=== PATIENT | female | born 1995 | race Caucasian/White ===

== ENCOUNTER 2018-10-10 12:22 | Outpatient (CLI) | payer BC, OTHER ==
[2018-10-10 12:56] VITALS: BP 122/83; PULSE 97; RESP 18; TEMP 97.3
[2018-10-10 13:50] LABS: Appearance,Urine Cloudy (Clear); Bilirubin,Urine Negative (Negative); Blood,Urine Negative (Negative); Color,Urine Yellow; Glucose,Urine (UA) Negative (Negative); Ketones,Urine Negative (Negative); Leukocyte Esterase,Urine Moderate (Negative); Mucus,Urine Occasional /hpf; Nitrite,Urine Negative (Negative); Protein,Urine 1+ (Negative); RBC,Urine 1 /hpf (0-5); Specific Gravity,Urine 1.022 (1.001-1.035); Squamous Epithelial Cell,Urine 13 /hpf (0-4); Urobilinogen,Urine <2.0 mg/dL (<2.0); WBC,Urine 7 /hpf (0-5)
--- NOTE | 2018-10-14 17:07 | P.MSEPDOC ---
Presenting Problems - Arrival Data Date of Arrival on Unit: 10/10/18 Time of Arrival on Unit: 12:22 Mode of Transport: Ambulatory - Complaint OB-Reason for Admission/Chief Complaint: Headache, Visual Disturbances Medical History - Information : 1 Para: 0 Number of Living Children: 0 - Gestational Age Gestational Age by NIDA (wks/days): 37 Weeks and 5 Days Review of Systems - Review of Systems Constitutional: No problems Breast: No problems ENT: No problems Cardiovascular: No problems Respiratory: No problems Gastrointestinal: Diarrhea Genitourinary: No problems Musculoskeletal: No problems Neurological: No problems Skin: No problems Vital Signs - Temperature Temperature: 97.3 F Temperature Source: Temporal Artery Scan - Pulse Right Sitting Brachial Pulse Rate: 97 Pulse Assessment Method: Automatic Cuff - Respirations Respiratory Rate: 18 Oxygen Delivery Method: Room Air O2 Sat by Pulse Oximetry: 97 - Blood Pressure Right Arm Sitting Blood Pressure: 122/83 Blood Pressure Mean: 96 Blood Pressure Source: Automatic Cuff Medical Screen Scoring (Pre) - Cervical Exam Dilation: 1-3 cm = 1 Effacement: Exam Deferred Membranes: Intact - Uterine Contractions Frequency: N/A Duration: N/A Intensity: N/A - Maternal Vital Signs Maternal Temperature: N/A Maternal Blood Pressure: N/A Signs of Preeclampsia: Headache = 1, Nausea/Vomiting = 1, Visual Disturbance = 1 Maternal Respirations: N/A - Pain Assessment Pain Location and Character: Head Pain Scale Used: Numeric (1 - 10) Pain Intensity: 3 Pain Management Goal: 0 Pain Description: Aching Pain Radiation Location: 0 Pain Frequency: Constant Pain Duration: 2.5 Pain Duration Units: Hours Pain Behavior: None Exhibited Effects of Pain: 0 Pain Aggravating Factors: None Non-Pharmacological Interventions: Darkened Room - Maternal Trauma Maternal Trauma: N/A - Assessment Baseline FHR: 145 Heart Rate - NICHD Category: Category I (Normal) = 0 NST: Reactive Position: N/A Station: N/A - Total Score Total Score (Pre): 4 - Level of Risk Level of Risk: Low (0-5) Physician Notification (Pre) - Physician Notified Physician Notified Date: 10/10/18 Physician Notified Time: 12:34 Physician/Practitioner Notifed:: dr verduzco Spoke With: dr verduzco New Order Received: Yes Disposition - Disposition OB Disposition: Discharge to home Discharge Date: 10/10/18 Discharge Time: 14:01 I agree with the RN Medical Screening Exam: Yes Risk & Benefit of care provided described in d/c instruction: Yes Diagnosis: HEADACHE
== END 2018-10-10 14:01 | disposition home or self-care (01) ==
LOC: FBPOP 12:22
PROVIDERS: ATTEND Obstetrics & Gynecology
DX: O99.89 Other specified diseases and conditions complicating pregnancy, childbirth and the puerperium (principal); R51 Headache; Z3A.37 37 weeks gestation of pregnancy
CPT/HCPCS: 59025; 81001; 99213

== ENCOUNTER 2018-10-15 05:05 | Inpatient (IN) | payer BC, OTHER ==
[2018-10-15] MEDS ORDERED: OXYTOCIN 10 UNIT/ML 1 ML VIAL IM PRN (05:32)
[2018-10-15] MEDS ORDERED: TERBUTALINE 1 MG/ML VIAL SQ PRN (05:32)
[2018-10-15] MEDS ORDERED: METHYLERGONOVINE 0.2 MG/ML 1 ML AMP IM PRN (05:32)
[2018-10-15] MEDS ORDERED: CARBOPROST TROMETHAMINE 250 MCG/ML 1 ML AMP IM PRN (05:32)
[2018-10-15] MEDS ORDERED: LIDOCAINE 0.5% (PF) 5 MG/ML (50 ML SDV) SQ PRN (05:32)
[2018-10-15] MEDS ORDERED: AMPICILLIN 2,000 MG in SODIUM CHLORIDE 0.9% 100 ML IVPB STA (05:32)
[2018-10-15] MEDS ORDERED: OXYTOCIN 30 UNITS/500 ML NS 30 UNIT in SALINE 1 500ML.BAG IV SCH (05:45)
[2018-10-15] MEDS: LACTATED RINGERS 1,000 ML IV SCH ×4 (06:04→21:39)
[2018-10-15 06:11] LABS: Basophils % (A) 0 %; Eosinophils # (A) 0.1 k/uL (0-0.7); Eosinophils % (A) 1 %; HCT 41.2 % (34.0-46.0); HGB 14.1 gm/dL (11.4-16.0); Lymphocytes # (A) 1.8 k/uL (1.0-4.8); Lymphocytes % (A) 13 %; MCH 29.4 pg (25.0-35.0); MCHC 34.3 g/dL (31.0-37.0); MCV 85.8 fL (80.0-100.0); Mean Platelet Volume 7.9; Monocytes # (A) 0.7 k/uL (0-1.0); Monocytes % (A) 5 %; Neutrophils # (A) 11.5 k/uL (1.3-7.7); Neutrophils % (A) 80 %; Platelet Count 302 k/uL (150-450); RDW 14.1 % (11.5-15.5); WBC 14.4 k/uL (3.8-10.6)
[2018-10-15] MEDS ORDERED: BUTORPHANOL 1 MG/ML 1 ML VIAL IV PRN (06:14)
[2018-10-15 06:24] VITALS: BMI 41.1
--- NOTE | 2018-10-15 08:36 | P.HPOB ---
History of Present Illness H&P Date: 10/15/18 Chief Complaint: Spontaneous rupture of membranes This is a 23-year-old female 1 para 0 with an estimated date of confinement of 10/26/2018, estimated gestational age of 38-3/7 weeks, who presents to labor and delivery with complaints of spontaneous rupture membranes at approximately 3:30 AM with clear fluid noted. She is feeling mild contractions. course has been uncomplicated. labs: Hepatitis B surface antigen-negative RPR-nonreactive Rubella-immune Blood type-B+ Antibody screen-negative HIV-nonreactive Hemoglobin-11.9 Toxoplasma screen-negative Random glucose-69 Obstetrical ultrasounds-normal anatomy One hour Glucola-123 Group B streptococcus-positive on rectovaginal swabbed and also on urine culture. Obstetrical history: Gynecologic history: No history of sexually transmitted diseases. 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 Review of Systems Constitutional: Denies chills, Denies fever Eyes: denies blurred vision, denies pain Ears, nose, mouth and throat: Denies headache, Denies sore throat Cardiovascular: Denies chest pain, Denies shortness of breath Respiratory: Denies cough Gastrointestinal: Reports abdominal pain (Mild contractions) Genitourinary: Reports pelvic pain, Reports Musculoskeletal: Reports low back pain Integumentary: Denies pruritus, Denies rash Neurological: Denies numbness, Denies weakness Psychiatric: Denies anxiety, Denies depression Past Medical History Additional Past Medical History / Comment(s): Irritable bowel syndrome; history of genital warts History of Any Multi-Drug Resistant Organisms: None Reported Past Surgical History: Cholecystectomy Past Anesthesia/Blood Transfusion Reactions: No Reported Reaction Past Psychological History: ADD/ADHD Smoking Status: Never smoker Past Alcohol Use History: None Reported Past Drug Use History: None Reported - Past Family History Mother Family Medical History: No Reported History Medications and Allergies Home Medications Medication Instructions Recorded Confirmed Type Pnv,Calcium 72/Iron/Folic Acid 1 tab PO DAILY 10/15/18 10/15/18 History [ Plus Tablet] Allergies Allergy/AdvReac Type Severity Reaction Status Date / Time No Known Allergies Allergy Verified 10/10/18 12:50 Exam Osteopathic Statement: *. No significant issues noted on an osteopathic structural exam other than those noted in the History and Physical/Consult. Vital Signs Temp Pulse Resp BP 10/15/18 06:16 97.0 F L 102 H 16 130/87 10/15/18 06:00 97 F L 102 H 16 130/87 Intake and Output 10/14/18 10/15/18 10/15/18 22:59 06:59 14:59 Other: # Voids 1 Weight 115.439 kg HEENT: Within normal limits Heart: Regular rate and rhythm Lungs: Clear to auscultation bilaterally Abdomen: Cervix: Initially 1-1/2 cm/50%/-2 station. Positive amnisure with clear fluid noted. heart tones: Reactive Contractions: Every 2-4 minutes, mild Extremities: Negative Homans Results Result Diagrams: 10/15/18 05:50 Abnormal Lab Results - Last 24 Hours (Table) 10/15/18 Range/Units 05:50 WBC 14.4 H (3.8-10.6) k/uL Neutrophils # 11.5 H (1.3-7.7) k/uL Assessment and Plan (1) 38 weeks gestation of Current Visit: Yes Status: Acute Code(s): Z3A.38 - 38 WEEKS GESTATION OF SNOMED Code(s): 15202802 (2) Group B Streptococcus carrier, +RV culture, currently Current Visit: Yes Status: Acute Code(s): O99.820 - STREPTOCOCCUS B CARRIER STATE COMPLICATING SNOMED Code(s): 2489286140232 Plan: Admission for early labor. Antibiotic prophylaxis for group B streptococcus. Epidural anesthesia if desired. Oxytocin augmentation of labor.
--- NOTE | 2018-10-15 08:37 | P.MSEPDOC ---
Presenting Problems - Arrival Data Date of Arrival on Unit: 10/15/18 Time of Arrival on Unit: 05:40 Mode of Transport: Ambulatory Medical History - Information : 1 Para: 0 Term: 0 : 0 Abortions: Spontaneous or Elective: 0 Number of Living Children: 0 - Gestational Age Gestational Age by NIDA (wks/days): 38 Weeks and 3 Days Vital Signs - Temperature Temperature: 97.0 F - Pulse Right Brachial Pulse Rate: 102 - Respirations Respiratory Rate: 16 - Blood Pressure Right Arm Blood Pressure: 130/87 Blood Pressure Mean: 101 Medical Screen Scoring (Post) - Cervical Exam Dilation: 1-3 cm = 1 Membranes: Ruptured = 3 - Uterine Contractions Frequency: > or = 36 weeks =2 Duration: > 40 seconds = 2 - Maternal Vital Signs Maternal Temperature: N/A Maternal Blood Pressure: N/A Signs of Preeclampsia: N/A Maternal Respirations: N/A - Pain Assessment Pain Location and Character: Lower, Abdomen Pain Scale Used: Numeric (1 - 10) Pain Intensity: 2 Pain Management Goal: 5 Pain Description: *Acute Pain Radiation Location: Back Pain Frequency: Intermittent Pain Duration: 2 Pain Duration Units: Hours Pain Behavior: None Exhibited Pain Aggravating Factors: Contractions Pharmacological Interventions: Discuss Pain Med Options Non-Pharmacological Interventions: Darkened Room - Maternal Trauma Maternal Trauma: N/A - Assessment Heart Rate: 130 Heart Rate - NICHD Category: Category I (Normal) = 0 NST: Reactive - Total Score Total Score (Post): 8 - Post Treatment Level of Risk Post Treatment Level of Risk: Medium (6-9) Physician Notification (Post) - Physician Notified Physician Notified Date: 10/15/18 Physician Notified Time: 05:50 Physician/Practitioner Notified:: Dr. Trinidad Spoke With: Dr. Trinidad New Order Received: Yes - Notification Comment Comment: RN reported maternal and status including that patients water had broke. Patient to be admitted for labor and started on antibiotics. Disposition - Disposition OB Disposition: Admit Transferred to:: Suite 1 I agree with the RN Medical Screening Exam: Yes Risk & Benefit of care provided described in d/c instruction: Yes Diagnosis: ENCOUNTER FOR FULL-TERM UNCOMPLICATED DELIVERY
[2018-10-15] MEDS ORDERED: fentaNYL (PF) 50 MCG/ML 5 ML AMP ONE (09:35)
[2018-10-15] MEDS ORDERED: SODIUM CHLORIDE 0.9% 100 ML BAG ONE (09:35)
[2018-10-15] MEDS ORDERED: ROPIVACAINE 5MG/ML 20ML VIAL ONE (09:35)
[2018-10-15] MEDS: AMPICILLIN 1,000 MG in SODIUM CHLORIDE 0.9% 50 ML IVPB SCH ×3 (10:07→21:42)
[2018-10-15] MEDS ORDERED: CITRIC ACID-SODIUM CITRATE 15 ML CUP PO ONE (18:06)
[2018-10-15] MEDS ORDERED: ceFAZolin IN SWFI 2 GM/20 ML SYRINGE IVP ONE (18:06)
[2018-10-15] MEDS ORDERED: KETOROLAC 30 MG/ML 1 ML VIAL ONE (18:37)
[2018-10-15] MEDS ORDERED: ONDANSETRON 4 MG/2 ML VIAL ONE (18:37)
[2018-10-15] MEDS ORDERED: NALBUPHINE 10 MG/ML (1 ML AMP) ONE (18:37)
[2018-10-15] MEDS ORDERED: MORPHINE SULFATE (PF) 0.3 MG/0.3 ML SYR ONE (18:37)
[2018-10-15] MEDS ORDERED: LIDOCAINE 2% (PF) 20 MG/ML 10 ML AMP ONE (18:37)
--- NOTE | 2018-10-15 19:17 | P.OP ---
Date of Procedure: 10/15/18 Preoperative Diagnosis: Intrauterine : Failure to progress Postoperative Diagnosis: Same with cephalopelvic disproportion Procedure(s) Performed: Primary low transverse section Anesthesia: FERNANDO Surgeon: Gregorio Javier Inspector [employer] Detail #1: Rafael Keenan Estimated Blood Loss (ml): 500 IV fluids (ml): 700 Urine output (ml): 400 Pathology: none sent Condition: stable Disposition: floor Operative Findings: Male scores of 9 and 9 at one and 5 minutes just Ashlee and weight of 8 lbs. 4 oz. Description of Procedure: Patient was taken to the operating suite where a epidural anesthetic was found be adequate. She was prepped and draped in normal sterile fashion and placed in the dorsal supine position with leftward tilt. Initially a Pfannenstiel skin incision was made this incision was then carried through to underlying layer of the fascia was second knife. Fascia was then nicked in the midline and this opening was extended laterally with Espinoza scissors. Superior and inferior aspect of this incision were then grasped tented up and bluntly and sharply dissected off the rectus muscles. Rectus muscles were then divided the midline and sharp dissection through the peritoneum was made. This opening was then extended superiorly and inferiorly with good visualization of both bowel and bladder. Bladder blade was then placed and the vesicouterine peritoneum identified and entered with Metzenbaum scissors. This opening was then extended across the face of the uterus with Metzenbaum scissors and the bladder flap was digitally created. Knife was then used to incise uterus and this opening was extended bluntly after fully being developed with a hemostat. Head was then atraumatically delivered and mouth nares were bulb suctioned. A nuchal cord 1 was easily reduced. Anterior and posterior shoulders were then delivered with gentle downward upper traction followed by the remainder of the baby. Umbilical cord was then clamped cut usual fashion an nursery personnel was present to assume care. Placenta was then delivered intact and Pitocin was added to the IV. Uterus was then closed in 2 layers with 0 Vicryl suture. Once excellent h emostasis was obtained blood and debris was suctioned from the posterior cul-de-sac and the uterus was reinserted into the abdomen. Peritoneal layer was then closed with 3-0 Vicryl suture. Fascial layer was closed with 0 Vicryl suture. One layer of 3-0 Vicryl was placed in the deep subcuticular tissues to reapproximate the skin. Skin was then closed with 3-0 Vicryl subcuticularly. Sponge, lap, needle counts were all correct 2. Patient was then taken to the recovery room in stable and satisfactory condition.
[2018-10-15] MEDS ORDERED: BENZOCAINE/MENTHOL SPRAY 1 GM/SPRAY AEROSOL TOPICAL PRN (19:44)
[2018-10-15] MEDS ORDERED: diphenhydrAMINE 50 MG CAP PO PRN ×2 (19:44)
[2018-10-15] MEDS ORDERED: NALOXONE 0.4 MG/ML 1 ML VIAL IV PRN (19:44)
[2018-10-15] MEDS ORDERED: diphenhydrAMINE 50 MG/ML 1 ML VIAL IVP PRN ×4 (19:44)
[2018-10-15] MEDS ORDERED: ONDANSETRON 4 MG/2 ML VIAL IVP PRN (19:44)
[2018-10-15] MEDS ORDERED: METOCLOPRAMIDE 5 MG/ML 2 ML VIAL IVP PRN (19:44)
[2018-10-15] MEDS ORDERED: IBUPROFEN 600 MG TAB PO PRN (19:44)
[2018-10-15] MEDS ORDERED: HYDROCORTISONE 2.5% RECTAL CREAM 30 GM TUBE RECTAL PRN (19:44)
[2018-10-15] MEDS ORDERED: ACETAMINOPHEN TAB 325 MG TAB PO PRN (19:44)
[2018-10-15] MEDS ORDERED: WITCH HAZEL 1 EACH MED..PAD TOPICAL PRN (19:44)
[2018-10-15] MEDS ORDERED: diphenhydrAMINE 25 MG CAP PO PRN ×2 (19:44)
[2018-10-15] MEDS ORDERED: OXYTOCIN 20 UNITS/1000 ML NS 1,000 ML IV SCH (19:44)
[2018-10-15] MEDS ORDERED: ZOLPIDEM 5 MG TAB PO PRN ×2 (19:44)
[2018-10-15] MEDS ORDERED: SIMETHICONE 80 MG CHEWABLE PO PRN (19:44)
[2018-10-15] MEDS ORDERED: LANOLIN CREAM 5 GM TUBE TOPICAL PRN (19:44)
[2018-10-15] MEDS ORDERED: SENNOSIDES-DOCUSATE SODIUM 1 EACH TAB PO SCH (20:00)
[2018-10-15] MEDS: SENNOSIDES-DOCUSATE SODIUM 1 EACH TAB PO SCH (21:39)
[2018-10-16] MEDS: KETOROLAC 30 MG/ML 1 ML VIAL IVP PRN ×2 (03:27→09:13)
[2018-10-16] MEDS: LACTATED RINGERS 1,000 ML IV SCH (03:46)
[2018-10-16 06:48] LABS: Basophils % (A) 0 %; Eosinophils # (A) 0.1 k/uL (0-0.7); Eosinophils % (A) 1 %; HCT 29.9 % (34.0-46.0); Lymphocytes # (A) 1.8 k/uL (1.0-4.8); Lymphocytes % (A) 14 %; MCH 29.5 pg (25.0-35.0); MCHC 34.8 g/dL (31.0-37.0); MCV 84.7 fL (80.0-100.0); Mean Platelet Volume 7.9; Monocytes # (A) 0.5 k/uL (0-1.0); Monocytes % (A) 4 %; Neutrophils # (A) 10.5 k/uL (1.3-7.7); Neutrophils % (A) 80 %; Platelet Count 198 k/uL (150-450); RBC 3.52 m/uL (3.80-5.40); RDW 13.9 % (11.5-15.5); WBC 13.1 k/uL (3.8-10.6)
[2018-10-16 07:00] LABS: HGB 10.4 gm/dL (11.4-16.0)
--- NOTE | 2018-10-16 09:36 | P.PNOBGPC ---
Subjective - Subjective Principal diagnosis: Postop day 1 Interval history: Doing very well this morning. She is ambulating and voiding. We'll advance diet this morning. Patient reports: Reports appetite normal, Reports voiding normally, Reports pain well controlled, Reports ambulating normally : doing well Objective - Vital Signs Latest vital signs: Vital Signs Temp Pulse Resp BP Pulse Ox 10/16/18 07:39 97.7 F 97 16 106/66 10/16/18 03:44 98.3 F 87 16 115/60 99 10/15/18 23:58 97.7 F 90 16 129/58 98 10/15/18 21:19 97.3 F L 98 16 126/73 98 10/15/18 20:49 97.9 F 110 H 16 119/71 96 10/15/18 20:19 97.0 F L 119 H 16 117/55 98 10/15/18 20:04 96.9 F L 110 H 16 136/60 96 10/15/18 19:49 104 H 16 134/64 10/15/18 19:34 121 H 16 135/83 10/15/18 19:19 97.6 F 146 H 18 135/83 97 Intake and Output 10/15/18 10/16/18 10/16/18 22:59 06:59 14:59 Output Total 300 300 100 Balance -300 -300 -100 Output: Urine 300 300 100 Uretheral (Rowe) 300 Other: Voiding Method Indwelling Catheter Indwelling Catheter - Exam Lungs: bilateral: normal Chest: Normal S1, Normal S2 Extremities: Present: normal Abdomen: Present: normal appearance, soft. Absent: distention, tenderness Incision: Present: normal, dry, intact Uterus: Present: normal, firm - Labs Labs: Abnormal Lab Results - Last 24 Hours (Table) 10/16/18 Range/Units 06:18 WBC 13.1 H (3.8-10.6) k/uL RBC 3.52 L (3.80-5.40) m/uL Hgb 10.4 L D (11.4-16.0) gm/dL Hct 29.9 L (34.0-46.0) % Neutrophils # 10.5 H (1.3-7.7) k/uL
[2018-10-16] MEDS: HYDROcodone/APAP 7.5-325MG 1 EACH TAB PO PRN (13:33)
[2018-10-16] MEDS: SENNOSIDES-DOCUSATE SODIUM 1 EACH TAB PO SCH ×2 (15:32→21:05)
[2018-10-16] MEDS: IBUPROFEN 600 MG TAB PO PRN ×2 (17:59→23:58)
[2018-10-16] MEDS: ACETAMINOPHEN TAB 325 MG TAB PO PRN (21:05)
[2018-10-17] MEDS: ACETAMINOPHEN TAB 325 MG TAB PO PRN ×2 (04:08→07:57)
[2018-10-17] MEDS: IBUPROFEN 600 MG TAB PO PRN (06:46)
[2018-10-17] MEDS: SENNOSIDES-DOCUSATE SODIUM 1 EACH TAB PO SCH (07:57)
[2018-10-17 08:02] VITALS: RESP 15; TEMP 97.9
--- NOTE | 2018-10-17 09:51 | P.DS ---
Providers Date of admission: 10/15/18 05:40 Expected date of discharge: 10/17/18 Attending physician: Aide Trinidad Primary care physician: Aide Trinidad [facility] Course: Patient is doing very well postop day 2. She is ambulating, voiding, and she is tolerating her diet. She voices no complaints. Vital signs are stable and she is afebrile. Heart regular, lungs clear, extremities are without pain. Abdomen soft incisions clean dry and intact and her uterus is firm below the umbilicus. Discharge instructions were thoroughly reviewed. Prescriptions for Motrin and [place] her 40 to the pharmacy. Pressure for breast pump is provided. All other questions are answered for her prior to discharge. She is stable for discharge at this time. Patient Condition at Discharge: Good Plan - Discharge Summary New Discharge Prescriptions: New Ibuprofen [Motrin] 600 mg PO Q6HR PRN #30 tab PRN Reason: Pain HYDROcodone/APAP 5-325MG [[place] 5-325] 1 tab PO Q4HR PRN #30 tab PRN Reason: Pain No Action Pnv,Calcium 72/Iron/Folic Acid [ Plus Tablet] 1 tab PO DAILY Discharge Medication List Pnv,Calcium 72/Iron/Folic Acid [ Plus Tablet] 1 tab PO DAILY 10/15/18 [History] HYDROcodone/APAP 5-325MG [[place] 5-325] 1 tab PO Q4HR PRN #30 tab 10/17/18 [Rx] Ibuprofen [Motrin] 600 mg PO Q6HR PRN #30 tab 10/17/18 [Rx] Follow up Appointment(s)/Referral(s): Aide Trinidad DO [Primary Care Provider] - 1 Week Activity/Diet/Wound Care/Special Instructions: No heavy lifting, limit stairs and driving, and pelvic rest. If any high temperatures, heavy bleeding, or severe pain call our office. Discharge Disposition: HOME SELF-CARE
[2018-10-17] MEDS: HYDROcodone/APAP 7.5-325MG 1 EACH TAB PO PRN (15:07)
[2018-10-17 16:28] VITALS: BP 137/60; PULSE 99
== END 2018-10-17 18:31 | disposition home or self-care (01) | DRG 788 ==
LOC: FBPOP 05:05 → 4FBP 05:40
PROVIDERS: ADMIT Obstetrics & Gynecology; ATTEND Obstetrics & Gynecology
PROC: 10D00Z1 Extraction of Products of Conception, Low, Open Approach (ICD-10-PCS; principal; 2018-10-15 18:50)
DX: O33.9 Maternal care for disproportion, unspecified (principal); O99.824 Streptococcus B carrier state complicating childbirth; O69.81X0 Labor and delivery complicated by cord around neck, without compression, not applicable or unspecified; Z3A.38 38 weeks gestation of pregnancy; Z37.0 Single live birth
CPT/HCPCS: 59025; 84112; 85025; 86850; 86900; 86901; 99213

== ENCOUNTER 2020-04-19 12:25 | Emergency (ER) | payer BC, OTHER ==
[2020-04-19 12:37] VITALS: TEMP 98.8
[2020-04-19] MEDS ORDERED: SODIUM CHLORIDE 0.9% 1,000 ML IV STA (12:55)
[2020-04-19] MEDS ORDERED: diphenhydrAMINE 50 MG/ML 1 ML VIAL IVP STA (12:56)
[2020-04-19] MEDS ORDERED: METOCLOPRAMIDE 5 MG/ML 2 ML VIAL IVP STA (12:56)
--- NOTE | 2020-04-19 13:13 | ED ---
Dizziness HPI - General Chief Complaint: Dizziness Stated Complaint: 23 wks preg, headache, dizziness Time Seen by Provider: 04/19/20 12:35 Source: patient Mode of arrival: ambulatory - History of Present Illness Initial Comments: Patient is a 25-year-old female who is who presents to the emergency department with reported headache since Thursday. She states that she has tried Tylenol, Benadryl at home for her headache which was directed by her [employer]. She's had no improvement. Edema and recommended that she come to the emergency room for evaluation of possible preeclampsia. Denies previous history of this. No history of hypertension at baseline. Does admit to blurred vision. No neck pain or stiffness. Denies fevers or chills. No right upper quadrant pain. Denies any changes in her urination. No other alleviating, precipitating or modifying factors - Related Data Previous Rx's Medication Instructions Recorded Cephalexin [Keflex] 500 mg PO Q12HR #14 cap 04/19/20 Allergies Allergy/AdvReac Type Severity Reaction Status Date / Time No Known Allergies Allergy Verified 04/19/20 13:39 Review of Systems ROS Statement: Those systems with pertinent positive or pertinent negative responses have been documented in the HPI. ROS Other: All systems not noted in ROS Statement are negative. Past Medical History Additional Past Medical History / Comment(s): Irritable bowel syndrome; history of genital warts History of Any Multi-Drug Resistant Organisms: None Reported Past Surgical History: Section, Cholecystectomy Past Anesthesia/Blood Transfusion Reactions: No Reported Reaction Past Psychological History: ADD/ADHD Smoking Status: Never smoker Past Alcohol Use History: None Reported Past Drug Use History: None Reported - Past Family History Mother Family Medical History: No Reported History General Exam General appearance: alert, in no apparent distress Head exam: Present: atraumatic, normocephalic, normal inspection Eye exam: Present: normal appearance, PERRL, EOMI. Absent: scleral icterus, conjunctival injection, periorbital swelling ENT exam: Present: normal exam, mucous membranes moist Neck exam: Present: normal inspection. Absent: tenderness, meningismus, lymphadenopathy Respiratory exam: Present: normal lung sounds bilaterally. Absent: respiratory distress, wheezes, rales, rhonchi, stridor Cardiovascular Exam: Present: regular rate, normal rhythm, normal heart sounds. Absent: systolic murmur, diastolic murmur, rubs, gallop, clicks GI/Abdominal exam: Present: soft, normal bowel sounds. Absent: distended, tenderness, guarding, rebound, rigid Extremities exam: Present: normal inspection, full ROM, normal capillary refill. Absent: tenderness, pedal edema, joint swelling, calf tenderness Back exam: Present: normal inspection Neurological exam: Present: alert, oriented X3, CN II-XII intact Psychiatric exam: Present: normal affect, normal mood Skin exam: Present: warm, dry, intact, normal color. Absent: rash Course Vital Signs 04/19/20 04/19/20 04/19/20 12:33 13:00 13:30 Temperature 98.8 F Pulse Rate 95 92 85 Respiratory 16 18 22 Rate Blood Pressure 110/73 133/79 122/77 O2 Sat by Pulse 98 95 97 Oximetry 04/19/20 04/19/20 14:00 14:30 Temperature Pulse Rate 93 89 Respiratory 19 22 Rate Blood Pressure 117/69 119/71 O2 Sat by Pulse 97 97 Oximetry Medical Decision Making - Medical Decision Making Upon arrival patient was placed into room 19. A thorough history and physical exam was performed. Blood pressures are obtained every 15 minutes and are noted to be less than 1:30 systolic. Lab studies were conducted. White count is 16.1. Urinalysis is positive for nitrites and occasional bacteria. Patient was given a dose of Rocephin. Bedside ultrasound was performed. There is positive motion, heart rate of approximately 155. Results are discussed with the patient. She does have follow-up appointment with Dr. Trinidad tomorrow. I will place her on Keflex. She was given a dose of Reglan and Benadryl for her headache for which she states she did have improvement. She has any new or worsening symptoms she should return to the emergency room. Patient was discharged home in stable condition - Lab Data Result diagrams: 04/19/20 13:15 04/19/20 13:15 Lab Results 04/19/20 04/19/20 04/19/20 Range/Units 13:15 13:15 13:15 WBC 16.1 H (3.8-10.6) k/uL RBC 4.32 (3.80-5.40) m/uL Hgb 13.2 (11.4-16.0) gm/dL Hct 38.0 (34.0-46.0) % MCV 88.0 (80.0-100.0) fL MCH 30.6 (25.0-35.0) pg MCHC 34.8 (31.0-37.0) g/dL RDW 12.4 (11.5-15.5) % Plt Count 247 (150-450) k/uL Neutrophils % 83 % Lymphocytes % 11 % Monocytes % 4 % Eosinophils % 1 % Basophils % 0 % Neutrophils # 13.4 H (1.3-7.7) k/uL Lymphocytes # 1.8 (1.0-4.8) k/uL Monocytes # 0.6 (0-1.0) k/uL Eosinophils # 0.2 (0-0.7) k/uL Basophils # 0.0 (0-0.2) k/uL PT 9.6 (9.0-12.0) sec INR 0.9 (<1.2) Sodium (137-145) mmol/L Potassium (3.5-5.1) mmol/L Chloride (98-107) mmol/L Carbon Dioxide (22-30) mmol/L Anion Gap mmol/L BUN (7-17) mg/dL Creatinine (0.52-1.04) mg/dL Est GFR (CKD-EPI)AfAm (>60 ml/min/1.73 sqM) Est GFR (CKD-EPI)NonAf (>60 ml/min/1.73 sqM) Glucose (74-99) mg/dL Uric Acid (3.7-7.4) mg/dL Calcium (8.4-10.2) mg/dL Total Bilirubin (0.2-1.3) mg/dL AST (14-36) U/L ALT (4-34) U/L Alkaline Phosphatase (38-126) U/L Lactate Dehydrogenase (313-618) U/L Total Protein (6.3-8.2) g/dL Albumin (3.5-5.0) g/dL Urine Color Yellow Urine Appearance Cloudy H (Clear) Urine pH 6.0 (5.0-8.0) Ur Specific [place] 1.024 (1.001-1.035) Urine Protein 1+ H (Negative) Urine Glucose (UA) Negative (Negative) Urine Ketones Trace H (Negative) Urine Blood Trace H (Negative) Urine Nitrite Positive H (Negative) Urine Bilirubin Negative (Negative) Urine Urobilinogen <2.0 (<2.0) mg/dL Ur Leukocyte Esterase Moderate H (Negative) Urine RBC 4 (0-5) /hpf Urine WBC 21 H (0-5) /hpf Ur Squamous Epith Cells 8 H (0-4) /hpf Urine Bacteria Occasional H (None) /hpf Urine Mucus Moderate H (None) /hpf 04/19/20 Range/Units 13:15 WBC (3.8-10.6) k/uL RBC (3.80-5.40) m/uL Hgb (11.4-16.0) gm/dL Hct (34.0-46.0) % MCV (80.0-100.0) fL MCH (25.0-35.0) pg MCHC (31.0-37.0) g/dL RDW (11.5-15.5) % Plt Count (150-450) k/uL Neutrophils % % Lymphocytes % % Monocytes % % Eosinophils % % Basophils % % Neutrophils # (1.3-7.7) k/uL Lymphocytes # (1.0-4.8) k/uL Monocytes # (0-1.0) k/uL Eosinophils # (0-0.7) k/uL Basophils # (0-0.2) k/uL PT (9.0-12.0) sec INR (<1.2) Sodium 136 L (137-145) mmol/L Potassium 4.0 (3.5-5.1) mmol/L Chloride 108 H (98-107) mmol/L Carbon Dioxide 18 L (22-30) mmol/L Anion Gap 10 mmol/L BUN 5 L (7-17) mg/dL Creatinine 0.45 L (0.52-1.04) mg/dL Est GFR (CKD-EPI)AfAm >90 (>60 ml/min/1.73 sqM) Est GFR (CKD-EPI)NonAf >90 (>60 ml/min/1.73 sqM) Glucose 78 (74-99) mg/dL Uric Acid 3.9 (3.7-7.4) mg/dL Calcium 9.3 (8.4-10.2) mg/dL Total Bilirubin 0.3 (0.2-1.3) mg/dL AST 19 (14-36) U/L ALT 17 (4-34) U/L Alkaline Phosphatase 61 (38-126) U/L Lactate Dehydrogenase 358 (313-618) U/L Total Protein 6.8 (6.3-8.2) g/dL Albumin 4.0 (3.5-5.0) g/dL Urine Color Urine Appearance (Clear) Urine pH (5.0-8.0) Ur Specific [place] (1.001-1.035) Urine Protein (Negative) Urine Glucose (UA) (Negative) Urine Ketones (Negative) Urine Blood (Negative) Urine Nitrite (Negative) Urine Bilirubin (Negative) Urine Urobilinogen (<2.0) mg/dL Ur Leukocyte Esterase (Negative) Urine RBC (0-5) /hpf Urine WBC (0-5) /hpf Ur Squamous Epith Cells (0-4) /hpf Urine Bacteria (None) /hpf Urine Mucus (None) /hpf Disposition Clinical Impression: Headache, UTI (urinary tract infection), Second trimester Disposition: HOME SELF-CARE Condition: Stable Instructions (If sedation given, give patient instructions): Urinary Tract Infection in (ED) Additional Instructions: please follow-up with Dr. Trinidad tomorrow. Return to the emergency room for any new or worsening symptoms Prescriptions: Cephalexin [Keflex] 500 mg PO Q12HR #14 cap Is patient prescribed a controlled substance at d/c from ED?: No Referrals: Nonstaff,Physician [REFERRING] - 1-2 days Aide Trinidad DO [Doctor of Osteopathic Medicine] - 1-2 days Time of Disposition: 14:35
[2020-04-19 13:23] LABS: Basophils % (A) 0 %; Eosinophils # (A) 0.2 k/uL (0-0.7); Eosinophils % (A) 1 %; HGB 13.2 gm/dL (11.4-16.0); Lymphocytes # (A) 1.8 k/uL (1.0-4.8); Lymphocytes % (A) 11 %; MCH 30.6 pg (25.0-35.0); MCHC 34.8 g/dL (31.0-37.0); Mean Platelet Volume 7.1; Monocytes # (A) 0.6 k/uL (0-1.0); Monocytes % (A) 4 %; Neutrophils # (A) 13.4 k/uL (1.3-7.7); Neutrophils % (A) 83 %; Platelet Count 247 k/uL (150-450); RBC 4.32 m/uL (3.80-5.40); RDW 12.4 % (11.5-15.5); WBC 16.1 k/uL (3.8-10.6)
[2020-04-19 13:26] LABS: Appearance,Urine Cloudy (Clear); Bacteria,Urine Occasional /hpf; Bilirubin,Urine Negative (Negative); Blood,Urine Trace (Negative); Color,Urine Yellow; Glucose,Urine (UA) Negative (Negative); Ketones,Urine Trace (Negative); Leukocyte Esterase,Urine Moderate (Negative); Mucus,Urine Moderate /hpf; Nitrite,Urine Positive (Negative); Protein,Urine 1+ (Negative); RBC,Urine 4 /hpf (0-5); Specific Gravity,Urine 1.024 (1.001-1.035); Squamous Epithelial Cell,Urine 8 /hpf (0-4); Urobilinogen,Urine <2.0 mg/dL (<2.0); WBC,Urine 21 /hpf (0-5)
[2020-04-19 13:32] LABS: ALT 17 U/L (4-34); AST 19 U/L (14-36); African American GFR (CKD) >90 (>60 ml/min/1.73 sqM); Alkaline Phosphatase 61 U/L (38-126); Anion Gap 10 mmol/L; Blood Urea Nitrogen 5 mg/dL (7-17); Calcium 9.3 mg/dL (8.4-10.2); Carbon Dioxide 18 mmol/L (22-30); Chloride 108 mmol/L (98-107); Glucose 78 mg/dL (74-99); LDH 358 U/L (313-618); Non-African American GFR(CKD) >90 (>60 ml/min/1.73 sqM); Sodium 136 mmol/L (137-145); Total Bilirubin 0.3 mg/dL (0.2-1.3); Total Protein 6.8 g/dL (6.3-8.2); Uric Acid 3.9 mg/dL (3.7-7.4)
[2020-04-19 13:34] VITALS: RESP 22
[2020-04-19 13:35] LABS: INR 0.9 (<1.2); Prothrombin Time 9.6 sec (9.0-12.0)
[2020-04-19] MEDS ORDERED: cefTRIAXone IN SWFI 1,000 MG/10 ML SYRINGE IVP STA (14:02)
[2020-04-19 14:40] VITALS: BP 119/71; PULSE 89
== END 2020-04-19 14:53 | disposition home or self-care (01) ==
LOC: EC 12:25
DX: O99.891 Other specified diseases and conditions complicating pregnancy (principal); R51.9 Headache, unspecified; O23.92 Unspecified genitourinary tract infection in pregnancy, second trimester; Z3A.23 23 weeks gestation of pregnancy
CPT/HCPCS: 36415; 80053; 83615; 84550; 85025; 85610; 81001; 87086; 99284; 96374; 96375 ×2; 96361 ×2; J1200; J2765; J0696

== ENCOUNTER 2020-06-04 12:18 | Outpatient (CLI) | payer BC, OTHER ==
[2020-06-04 13:05] LABS: Glucose,Whole Blood 74 mg/dL (75-99)
[2020-06-04 13:36] VITALS: BP 122/74; PULSE 89; RESP 16; TEMP 98.1
[2020-06-04 13:41] LABS: Appearance,Urine Cloudy (Clear); Bacteria,Urine Moderate /hpf; Bilirubin,Urine Negative (Negative); Blood,Urine Negative (Negative); Color,Urine Yellow; Glucose,Urine (UA) Negative (Negative); Ketones,Urine 2+ (Negative); Leukocyte Esterase,Urine Negative (Negative); Mucus,Urine Moderate /hpf; Nitrite,Urine Negative (Negative); PH, Urine 6.5 (5.0-8.0); Protein,Urine Trace (Negative); RBC,Urine 4 /hpf (0-5); Specific Gravity,Urine 1.021 (1.001-1.035); Squamous Epithelial Cell,Urine 8 /hpf (0-4); Urobilinogen,Urine <2.0 mg/dL (<2.0); WBC,Urine 3 /hpf (0-5)
--- NOTE | 2020-06-17 05:16 | P.MSEPDOC ---
Presenting Problems - Arrival Data Date of Arrival on Unit: 06/04/20 Time of Arrival on Unit: 12:55 Mode of Transport: Ambulatory - Complaint OB-Reason for Admission/Chief Complaint: Acute Nausea/Vomiting, Headache, Dizziness Medical History - Information : 2 Para: 1 Term: 1 : 0 Abortions: Spontaneous or Elective: 0 Number of Living Children: 1 - Gestational Age Gestational Age by NIDA (wks/days): 30 Weeks and 0 Days - History Complications: GDM Review of Systems - Review of Systems Constitutional: No problems Breast: No problems ENT: No problems Cardiovascular: No problems Respiratory: No problems Gastrointestinal: No problems Genitourinary: No problems Musculoskeletal: No problems Neurological: Dizziness Skin: No problems Vital Signs - Temperature Temperature: 98.1 F Temperature Source: Temporal Artery Scan - Pulse Right Pulse Rate: 89 Pulse Assessment Method: Pulse Oximetry - Respirations Respiratory Rate: 16 Oxygen Delivery Method: Room Air O2 Sat by Pulse Oximetry: 98 - Blood Pressure Right Arm Blood Pressure: 122/74 Blood Pressure Mean: 90 Blood Pressure Source: Automatic Cuff Medical Screen Scoring (Pre) - Cervical Exam Dilation: Exam Deferred Effacement: Exam Deferred Membranes: Intact - Uterine Contractions Frequency: N/A Duration: N/A Intensity: N/A - Maternal Vital Signs Maternal Temperature: N/A Maternal Blood Pressure: N/A Signs of Preeclampsia: Headache = 1, Nausea/Vomiting = 1, Visual Disturbance = 1 Maternal Respirations: N/A - Maternal Trauma Maternal Trauma: N/A - Assessment - Baby A Baseline FHR: 145 Heart Rate - NICHD Category: Category I (Normal) = 0 NST: Reactive Position: N/A Station: N/A - Total Score - Baby A Total Score - Baby A: 3 - Total Score - Baby B Total Score - Baby B: 3 - Total Score - Baby C Total Score - Baby C: 3 - Level of Risk - Baby A Level of Risk - Baby A: Low (0-5) - Level of Risk - Baby B Level of Risk - Baby B: Low (0-5) - Level of Risk - Baby C Level of Risk - Baby C: Low (0-5) Physician Notification (Pre) - Physician Notified Physician Notified Date: 06/04/20 Physician Notified Time: 12:55 New Order Received: Yes - Notification Comment Comment: Obtain blood sugar once now and UA. Medical Screen Scoring (Post) - Cervical Exam Dilation: Exam Deferred Effacement: Exam Deferred Membranes: Intact - Uterine Contractions Frequency: N/A Duration: N/A Intensity: N/A - Maternal Vital Signs Maternal Temperature: N/A Maternal Blood Pressure: N/A Signs of Preeclampsia: Headache = 1 Maternal Respirations: N/A - Maternal Trauma Maternal Trauma: N/A - Assessment - Baby A Heart Rate: 150 Heart Rate - NICHD Category: Category I (Normal) = 0 NST: Reactive Position: N/A Station: N/A - Total Score Total Score - Baby A: 1 Total Score - Baby B: 1 Total Score - Baby C: 1 - Post Treatment Level of Risk Post Treatment Level of Risk - Baby A: Low (0-5) Post Treatment Level of Risk - Baby B: Low (0-5) Post Treatment Level of Risk - Baby C: Low (0-5) Physician Notification (Post) - Physician Notified Physician Notified Date: 06/04/20 Physician Notified Time: 14:31 Physician/Practitioner Notified:: Leandro Spoke With: Leandro New Order Received: Yes - Notification Comment Comment: Pt may DC home. After evaluation of UA and blood sugar, pt needs to drink more fluids and make sure she is eating her snacks in between meals and taking in enough food. Disposition - Disposition OB Disposition: Discharge to home Discharge Date: 06/04/20 Discharge Time: 15:00 I agree with the RN Medical Screening Exam: Yes Risk & Benefit of care provided described in d/c instruction: Yes Diagnosis: HEADACHE WITH ORTHOSTATIC COMPONENT, NEC
== END 2020-06-04 15:00 | disposition home or self-care (01) ==
LOC: FBPOP 12:18
PROVIDERS: ATTEND Obstetrics & Gynecology
DX: O99.891 Other specified diseases and conditions complicating pregnancy (principal); R51.0 Headache with orthostatic component, not elsewhere classified; Z3A.30 30 weeks gestation of pregnancy
CPT/HCPCS: 59025; 81001; 99213

== ENCOUNTER 2020-06-19 19:22 | Outpatient (CLI) | payer BC, OTHER ==
[2020-06-19 19:47] LABS: Appearance,Urine Clear (Clear); Bilirubin,Urine Negative (Negative); Blood,Urine Negative (Negative); Color,Urine Light Yellow; Glucose,Urine (UA) Negative (Negative); Ketones,Urine 1+ (Negative); Leukocyte Esterase,Urine Negative (Negative); Nitrite,Urine Negative (Negative); PH, Urine 6.5 (5.0-8.0); Protein,Urine Negative (Negative); Specific Gravity,Urine 1.007 (1.001-1.035); Urobilinogen,Urine <2.0 mg/dL (<2.0)
[2020-06-19 20:29] VITALS: BP 119/65; PULSE 86; RESP 16; TEMP 96.8
--- NOTE | 2020-06-19 20:50 | P.MSEPDOC ---
Presenting Problems - Arrival Data Date of Arrival on Unit: 06/19/20 Time of Arrival on Unit: 20:09 Mode of Transport: Ambulatory - Complaint OB-Reason for Admission/Chief Complaint: Pain Comment: Right sided flank pain 10/29 Medical History - Information : 2 Para: 1 Term: 1 : 0 Abortions: Spontaneous or Elective: 0 Number of Living Children: 1 - Gestational Age Gestational Age by NIDA (wks/days): 32 Weeks and 1 Days Review of Systems - Review of Systems Constitutional: No problems Breast: No problems ENT: No problems Cardiovascular: No problems Respiratory: No problems Gastrointestinal: No problems Genitourinary: No problems Musculoskeletal: No problems Neurological: No problems Skin: No problems Vital Signs - Temperature Temperature: 96.8 F Temperature Source: Temporal Artery Scan - Pulse Right Brachial Pulse Rate: 86 Pulse Assessment Method: Automatic Cuff - Respirations Respiratory Rate: 16 Oxygen Delivery Method: Room Air O2 Sat by Pulse Oximetry: 98 - Blood Pressure Right Arm Blood Pressure: 119/65 Blood Pressure Mean: 83 Blood Pressure Source: Automatic Cuff Medical Screen Scoring (Pre) - Cervical Exam Dilation: Exam Deferred Effacement: Exam Deferred - Uterine Contractions Frequency: N/A Duration: N/A Intensity: N/A - Maternal Vital Signs Maternal Temperature: N/A - Maternal Trauma Maternal Trauma: N/A - Assessment - Baby A Baseline FHR: 145 Heart Rate - NICHD Category: Category I (Normal) = 0 - Total Score - Baby A Total Score - Baby A: 0 - Total Score - Baby B Total Score - Baby B: 0 - Total Score - Baby C Total Score - Baby C: 0 - Level of Risk - Baby A Level of Risk - Baby A: Low (0-5) - Level of Risk - Baby B Level of Risk - Baby B: Low (0-5) - Level of Risk - Baby C Level of Risk - Baby C: Low (0-5) Physician Notification (Pre) - Physician Notified Physician Notified Date: 06/19/20 Physician Notified Time: 19:22 - Notification Comment Comment: Discussed comfort measures with pt. Disposition - Disposition OB Disposition: Discharge to home, Written follow up instructions reviewed Discharge Date: 06/19/20 Discharge Time: 19:22 I agree with the RN Medical Screening Exam: Yes Risk & Benefit of care provided described in d/c instruction: Yes Diagnosis: RELATED CONDITIONS, UNSPECIFIED, THIRD TRIMESTER
== END 2020-06-19 20:16 | disposition home or self-care (01) ==
LOC: FBPOP 19:22
PROVIDERS: ATTEND Obstetrics & Gynecology
DX: O26.93 Pregnancy related conditions, unspecified, third trimester (principal); Z3A.32 32 weeks gestation of pregnancy
CPT/HCPCS: 59025; 81003; 99213

== ENCOUNTER 2020-06-22 12:28 | Outpatient (CLI) | payer BC, OTHER ==
[2020-06-22 13:06] VITALS: BP 112/55; PULSE 94; RESP 18; TEMP 96.8
--- NOTE | 2020-06-23 08:31 | P.MSEPDOC ---
Presenting Problems - Arrival Data Date of Arrival on Unit: 06/22/20 Time of Arrival on Unit: 12:25 Mode of Transport: Ambulatory - Complaint OB-Reason for Admission/Chief Complaint: NST Medical History - Information : 2 Para: 1 Term: 1 : 0 Abortions: Spontaneous or Elective: 0 Number of Living Children: 1 - Gestational Age Gestational Age by NIDA (wks/days): 32 Weeks and 4 Days - History Complications: GDM Review of Systems - Review of Systems Constitutional: No problems Breast: No problems ENT: No problems Cardiovascular: No problems Respiratory: No problems Gastrointestinal: No problems Genitourinary: No problems Musculoskeletal: No problems Neurological: No problems Skin: No problems Vital Signs - Temperature Temperature: 96.8 F Temperature Source: Temporal Artery Scan - Pulse Right Sitting Brachial Pulse Rate: 94 Pulse Assessment Method: Automatic Cuff - Respirations Respiratory Rate: 18 Oxygen Delivery Method: Room Air O2 Sat by Pulse Oximetry: 97 - Blood Pressure Right Arm Sitting Blood Pressure: 112/55 Blood Pressure Mean: 74 Blood Pressure Source: Automatic Cuff Medical Screen Scoring (Pre) - Cervical Exam Dilation: Exam Deferred Effacement: Exam Deferred Membranes: Intact - Uterine Contractions Frequency: N/A Duration: N/A Intensity: N/A - Maternal Vital Signs Maternal Temperature: N/A Maternal Blood Pressure: N/A Signs of Preeclampsia: N/A - Maternal Trauma Maternal Trauma: N/A - Assessment - Baby A Baseline FHR: 145 Heart Rate - NICHD Category: Category I (Normal) = 0 NST: Reactive Position: N/A Station: N/A - Total Score - Baby A Total Score - Baby A: 0 - Total Score - Baby B Total Score - Baby B: 0 - Total Score - Baby C Total Score - Baby C: 0 - Level of Risk - Baby A Level of Risk - Baby A: Low (0-5) - Level of Risk - Baby B Level of Risk - Baby B: Low (0-5) - Level of Risk - Baby C Level of Risk - Baby C: Low (0-5) Physician Notification (Pre) - Physician Notified Physician Notified Date: 06/22/20 Physician Notified Time: 13:00 New Order Received: Yes - Notification Comment Comment: nh home. Follow up with Dr Trinidad and high ha as scheduled. Disposition - Disposition OB Disposition: Discharge to home Discharge Date: 06/22/20 Discharge Time: 13:06 I agree with the RN Medical Screening Exam: Yes Risk & Benefit of care provided described in d/c instruction: Yes Diagnosis: GESTATIONAL DIABETES MELLITUS IN , UNSP CONTROL
== END 2020-06-22 13:07 | disposition home or self-care (01) ==
LOC: FBPOP 12:28
PROVIDERS: ATTEND Obstetrics & Gynecology
DX: O24.419 Gestational diabetes mellitus in pregnancy, unspecified control (principal); Z3A.32 32 weeks gestation of pregnancy
CPT/HCPCS: 59025; 99213

== ENCOUNTER 2020-07-01 17:32 | Outpatient (CLI) | payer BC, OTHER ==
[2020-07-01 18:03] LABS: Glucose,Whole Blood 75 mg/dL (75-99)
[2020-07-01 18:29] VITALS: BP 119/63; PULSE 86; RESP 16; TEMP 97.7
--- NOTE | 2020-07-01 19:10 | P.MSEPDOC ---
Presenting Problems - Arrival Data Date of Arrival on Unit: 07/01/20 Time of Arrival on Unit: 17:33 Mode of Transport: Ambulatory - Complaint OB-Reason for Admission/Chief Complaint: Other Comment: dizziness Medical History - Information : 2 Para: 1 Term: 1 : 0 Abortions: Spontaneous or Elective: 0 Number of Living Children: 1 - Gestational Age Gestational Age by NIDA (wks/days): 33 Weeks and 6 Days - History Complications: GDM Review of Systems - Review of Systems Constitutional: No problems Breast: No problems ENT: No problems Cardiovascular: No problems Respiratory: No problems Gastrointestinal: No problems Genitourinary: No problems Musculoskeletal: No problems Neurological: Dizziness Skin: No problems Vital Signs - Temperature Temperature: 97.7 F Temperature Source: Temporal Artery Scan - Pulse Pulse Oximetery Pulse Rate: 86 - Respirations Respiratory Rate: 16 Oxygen Delivery Method: Room Air - Blood Pressure Right Arm Blood Pressure: 119/63 Blood Pressure Mean: 81 Blood Pressure Source: Automatic Cuff Medical Screen Scoring (Pre) - Cervical Exam Dilation: Exam Deferred Effacement: Exam Deferred Membranes: Intact - Uterine Contractions Frequency: N/A Duration: N/A Intensity: N/A - Maternal Vital Signs Maternal Temperature: N/A Maternal Blood Pressure: N/A Signs of Preeclampsia: N/A Maternal Respirations: N/A - Maternal Trauma Maternal Trauma: N/A - Assessment - Baby A Baseline FHR: 145 Heart Rate - NICHD Category: Category I (Normal) = 0 NST: Reactive Position: N/A Station: N/A - Total Score - Baby A Total Score - Baby A: 0 - Total Score - Baby B Total Score - Baby B: 0 - Total Score - Baby C Total Score - Baby C: 0 - Level of Risk - Baby A Level of Risk - Baby A: Low (0-5) - Level of Risk - Baby B Level of Risk - Baby B: Low (0-5) - Level of Risk - Baby C Level of Risk - Baby C: Low (0-5) Physician Notification (Pre) - Physician Notified Physician Notified Date: 07/01/20 Physician Notified Time: 18:09 New Order Received: Yes - Notification Comment Comment: reported pt visit, blood glucose, reactive nst, bp. pt may be discharged home Disposition - Disposition OB Disposition: Discharge to home Discharge Date: 07/01/20 Discharge Time: 18:16 I agree with the RN Medical Screening Exam: Yes Risk & Benefit of care provided described in d/c instruction: Yes Diagnosis: RELATED CONDITIONS, UNSPECIFIED, THIRD TRIMESTER
== END 2020-07-01 18:16 | disposition home or self-care (01) ==
LOC: FBPOP 17:32
PROVIDERS: ATTEND Obstetrics & Gynecology
DX: O26.93 Pregnancy related conditions, unspecified, third trimester (principal); Z3A.33 33 weeks gestation of pregnancy
CPT/HCPCS: 59025; 99213

== ENCOUNTER 2020-07-18 11:59 | Outpatient (CLI) | payer BC, OTHER ==
[2020-07-18 15:46] VITALS: BP 127/69; PULSE 95; RESP 18; TEMP 96.5
--- NOTE | 2020-07-21 21:02 | P.MSEPDOC ---
Presenting Problems - Arrival Data Date of Arrival on Unit: 07/18/20 Time of Arrival on Unit: 12:00 Mode of Transport: Ambulatory - Complaint OB-Reason for Admission/Chief Complaint: Headache, Visual Disturbances Medical History - Information : 2 Para: 1 Term: 1 : 0 Abortions: Spontaneous or Elective: 0 Number of Living Children: 1 - Gestational Age Gestational Age by NIDA (wks/days): 36 Weeks and 2 Days - History Complications: GDM, Prior Review of Systems - Review of Systems Constitutional: No problems Breast: No problems ENT: No problems Cardiovascular: No problems Respiratory: No problems Gastrointestinal: No problems Genitourinary: No problems Musculoskeletal: No problems Neurological: No problems Skin: No problems Vital Signs - Temperature Temperature: 96.5 F Temperature Source: Temporal Artery Scan - Pulse Right Pulse Rate: 95 Pulse Assessment Method: Automatic Cuff - Respirations Respiratory Rate: 18 Oxygen Delivery Method: Room Air O2 Sat by Pulse Oximetry: 97 - Blood Pressure Right Arm Blood Pressure: 127/69 Blood Pressure Mean: 88 Blood Pressure Source: Automatic Cuff Medical Screen Scoring (Pre) - Cervical Exam Dilation: 0 cm = 0 Membranes: Intact - Uterine Contractions Frequency: > or = 36 weeks =2 Duration: > 40 seconds = 2 Intensity: N/A - Maternal Vital Signs Maternal Temperature: N/A Signs of Preeclampsia: Headache = 1 Maternal Respirations: N/A - Maternal Trauma Maternal Trauma: N/A - Assessment - Baby A Baseline FHR: 150 Heart Rate - NICHD Category: Category II (Indeterminate) = 3 NST: Reactive Position: N/A Station: N/A - Total Score - Baby A Total Score - Baby A: 8 - Total Score - Baby B Total Score - Baby B: 5 - Total Score - Baby C Total Score - Baby C: 5 - Level of Risk - Baby A Level of Risk - Baby A: Medium (6-9) - Level of Risk - Baby B Level of Risk - Baby B: Low (0-5) - Level of Risk - Baby C Level of Risk - Baby C: Low (0-5) Physician Notification (Pre) - Physician Notified Physician Notified Date: 07/18/20 Physician Notified Time: 13:02 - Notification Comment Comment: RN called and notified Dr. Trinidad of negative amnisure and closed/thick/high cervix. Neuro exam WNL. No regular contractions. Pt to DC home and follow up with Dr. Trinidad in office tomorrow. Disposition - Disposition OB Disposition: Discharge to home Discharge Date: 07/18/20 Discharge Time: 13:15 I agree with the RN Medical Screening Exam: Yes Case reviewed; plan agreed upon as documented in EMR&OBIX.: Yes Diagnosis: RELATED CONDITIONS, UNSPECIFIED, THIRD TRIMESTER
== END 2020-07-18 13:15 | disposition home or self-care (01) ==
LOC: FBPOP 11:59
PROVIDERS: ATTEND Obstetrics & Gynecology
DX: O26.93 Pregnancy related conditions, unspecified, third trimester (principal); Z3A.36 36 weeks gestation of pregnancy
CPT/HCPCS: 59025; 84112; 99215

== ENCOUNTER 2020-07-23 18:01 | Outpatient (CLI) | payer BC, OTHER ==
[2020-07-23 19:23] VITALS: BP 114/60; PULSE 90; RESP 16; TEMP 98.2
--- NOTE | 2020-07-26 09:32 | P.MSEPDOC ---
Presenting Problems - Arrival Data Date of Arrival on Unit: 07/23/20 Time of Arrival on Unit: 18:01 Mode of Transport: Ambulatory - Complaint OB-Reason for Admission/Chief Complaint: Other Comment: pt arrived c/o H/A and cramping. pt denies any leaking of fluid pt states shes had a H/A since this afternoon Medical History - Information : 2 Para: 1 Term: 1 : 0 Abortions: Spontaneous or Elective: 0 Number of Living Children: 1 - Gestational Age Gestational Age by NIDA (wks/days): 37 Weeks and 0 Days - History Complications: Prior Review of Systems - Review of Systems Constitutional: No problems Breast: No problems ENT: No problems Cardiovascular: No problems Respiratory: No problems Gastrointestinal: No problems Genitourinary: No problems Musculoskeletal: No problems Neurological: No problems Skin: No problems Vital Signs - Temperature Temperature: 98.2 F Temperature Source: Oral - Pulse Right Brachial Pulse Rate: 90 Pulse Assessment Method: Automatic Cuff - Respirations Respiratory Rate: 16 Oxygen Delivery Method: Room Air O2 Sat by Pulse Oximetry: 97 - Blood Pressure Right Arm Blood Pressure: 114/60 Blood Pressure Mean: 78 Blood Pressure Source: Automatic Cuff Medical Screen Scoring (Pre) - Cervical Exam Dilation: Exam Deferred Effacement: Exam Deferred - Uterine Contractions Frequency: N/A Duration: N/A Intensity: N/A - Maternal Vital Signs Maternal Temperature: N/A Maternal Blood Pressure: N/A Signs of Preeclampsia: Headache = 1, Nausea/Vomiting = 1 Maternal Respirations: N/A - Maternal Trauma Maternal Trauma: N/A - Assessment - Baby A Baseline FHR: 140 Heart Rate - NICHD Category: Category I (Normal) = 0 NST: Reactive Position: N/A - Total Score - Baby A Total Score - Baby A: 2 - Total Score - Baby B Total Score - Baby B: 2 - Total Score - Baby C Total Score - Baby C: 2 - Level of Risk - Baby A Level of Risk - Baby A: Low (0-5) - Level of Risk - Baby B Level of Risk - Baby B: Low (0-5) - Level of Risk - Baby C Level of Risk - Baby C: Low (0-5) Physician Notification (Pre) - Physician Notified Physician Notified Date: 07/23/20 Physician Notified Time: 19:00 New Order Received: Yes - Notification Comment Comment: may discharge to home with instructions. pt may take tylenol for h/a and drink lots of fluid and keep scheduled appointment with dr verduzco tomorrow 07/24/2020 Disposition - Disposition OB Disposition: Discharge to home Discharge Date: 07/23/20 Discharge Time: 19:15 I agree with the RN Medical Screening Exam: Yes Case reviewed; plan agreed upon as documented in EMR&OBIX.: Yes Diagnosis: HEADACHE, UNSPECIFIED
== END 2020-07-23 19:15 | disposition home or self-care (01) ==
LOC: FBPOP 18:01
PROVIDERS: ATTEND Obstetrics & Gynecology
DX: O99.891 Other specified diseases and conditions complicating pregnancy (principal); R51.9 Headache, unspecified; O34.219 Maternal care for unspecified type scar from previous cesarean delivery; Z3A.37 37 weeks gestation of pregnancy
CPT/HCPCS: 59025; 99213

== ENCOUNTER 2020-08-01 06:16 | Outpatient (CLI) | payer BC, OTHER ==
[2020-08-01 06:40] VITALS: BP 108/65; PULSE 102; RESP 16; TEMP 95.6
--- NOTE | 2020-08-02 10:19 | P.MSEPDOC ---
Presenting Problems - Arrival Data Date of Arrival on Unit: 08/01/20 Time of Arrival on Unit: 06:16 Mode of Transport: Ambulatory - Complaint OB-Reason for Admission/Chief Complaint: Possible Onset of Labor Comment: Patient presents to triage with contractions every 3-5 minutes since 0300. Medical History - Information : 2 Para: 1 Term: 1 : 0 Abortions: Spontaneous or Elective: 0 Number of Living Children: 1 - Gestational Age Gestational Age by NIDA (wks/days): 38 Weeks and 2 Days - History Complications: GDM, GBS+, Prior Review of Systems - Review of Systems Constitutional: No problems Breast: No problems ENT: No problems Cardiovascular: No problems Respiratory: No problems Gastrointestinal: No problems Genitourinary: No problems Musculoskeletal: No problems Neurological: No problems Skin: No problems Vital Signs - Temperature Temperature: 95.6 F Temperature Source: Temporal Artery Scan - Pulse Right Brachial Pulse Rate: 102 Pulse Assessment Method: Automatic Cuff - Respirations Respiratory Rate: 16 Oxygen Delivery Method: Room Air O2 Sat by Pulse Oximetry: 100 - Blood Pressure Right Arm Blood Pressure: 108/65 Blood Pressure Mean: 79 Blood Pressure Source: Automatic Cuff Medical Screen Scoring (Pre) - Cervical Exam Dilation: 1-3 cm = 1 Effacement: Exam Deferred Membranes: Intact - Uterine Contractions Frequency: > 5 minutes apart = 1 Duration: > 40 seconds = 2 Intensity: N/A - Maternal Vital Signs Maternal Temperature: N/A Maternal Blood Pressure: N/A Signs of Preeclampsia: N/A Maternal Respirations: N/A - Maternal Trauma Maternal Trauma: N/A - Assessment - Baby A Baseline FHR: 135 Heart Rate - NICHD Category: Category I (Normal) = 0 NST: Reactive Position: N/A Station: N/A - Total Score - Baby A Total Score - Baby A: 4 - Total Score - Baby B Total Score - Baby B: 4 - Total Score - Baby C Total Score - Baby C: 4 - Level of Risk - Baby A Level of Risk - Baby A: Low (0-5) - Level of Risk - Baby B Level of Risk - Baby B: Low (0-5) - Level of Risk - Baby C Level of Risk - Baby C: Low (0-5) Physician Notification (Pre) - Physician Notified Physician Notified Date: 08/01/20 Physician Notified Time: 08:39 New Order Received: Yes - Notification Comment Comment: Orders given to recheck cervix, if no change made, orders given to discharge home with instructions Disposition - Disposition OB Disposition: Discharge to home, Written follow up instructions reviewed Discharge Date: 08/01/20 Discharge Time: 08:46 I agree with the RN Medical Screening Exam: Yes Case reviewed; plan agreed upon as documented in EMR&OBIX.: Yes Diagnosis: FALSE LABOR AT OR AFTER 37 COMPLETED WEEKS OF GESTATION
== END 2020-08-01 08:46 | disposition home or self-care (01) ==
LOC: FBPOP 06:16
PROVIDERS: ATTEND Obstetrics & Gynecology
DX: O47.1 False labor at or after 37 completed weeks of gestation (principal); Z3A.38 38 weeks gestation of pregnancy
CPT/HCPCS: 59025; 99213

== ENCOUNTER 2020-08-06 08:00 | Inpatient (IN) | payer BC, OTHER ==
[2020-08-03 15:51] VITALS: BMI 39.4
--- NOTE | 2020-08-06 10:07 | P.HPOB ---
History of Present Illness H&P Date: 08/06/20 Chief Complaint: Scheduled repeat section This is a 25 y.o. female, 2, para 1, with an estimated date of confinement of 08/13/2020, estimated gestational age of 39-1/7 weeks, who presents for scheduled repeat section. Her has been complic ated by gestational diabetes, diet-controlled. She has also had issues with nausea throughout her . She has been doing regular NSTs. Her last US at [facility] showed RONDA of 6 cm. labs: Hepatitis B surface antigen-neg RPR-NR Rubella-immune Blood type-B+ Antibody screen-neg HIV-NR Hemoglobin-13.3 Random glucose-68 OB US-normal anatomy 1 hr. GTT-161; 3 hr. GTT-fasting & 1 hr. GTT-high GBS-positive OB Hx: . Hx 1 for failure to progress. 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 Social Hx: Single/engaged. Unemployed. Review of Systems Constitutional: Denies chills, Denies fever Eyes: denies blurred vision, denies pain Ears, nose, mouth and throat: Reports headache, Denies sore throat Cardiovascular: Denies chest pain, Denies shortness of breath Respiratory: Denies cough Gastrointestinal: Reports abdominal pain (irreg. ctxs), Reports nausea Genitourinary: Reports pelvic pain, Reports , Denies dysuria, Denies hematuria Musculoskeletal: Reports low back pain Integumentary: Denies pruritus, Denies rash Neurological: Denies numbness, Denies weakness Psychiatric: Reports difficulty concentrating Past Medical History Additional Past Medical History / Comment(s): Gestational diabetes; Irritable bowel syndrome; history of genital warts History of Any Multi-Drug Resistant Organisms: None Reported Date of last positivie culture/infection: 8yrs old MDRO Source:: Pt does not remember specifications Past Surgical History: Section, Cholecystectomy Past Anesthesia/Blood Transfusion Reactions: No Reported Reaction Past Psychological History: ADD/ADHD Smoking Status: Former smoker Past Alcohol Use History: None Reported Past Drug Use History: None Reported - Past Family History Mother Family Medical History: No Reported History Medications and Allergies Home Medications Medication Instructions Recorded Confirmed Type No Known Home Medications 06/19/20 08/03/20 History Allergies Allergy/AdvReac Type Severity Reaction Status Date / Time No Known Allergies Allergy Verified 08/07/20 05:58 Exam Osteopathic Statement: *. No significant issues noted on an osteopathic structural exam other than those noted in the History and Physical/Consult. HEENT: within normal limits Heart: regular rate and rhythm Lungs: clear to auscultation bilaterally Abdomen: , non-tender Cervix: 1 cm/60%/-1 heart tones: 140's by doppler Extremities: neg. Merrick's Results Result Diagrams: 08/07/20 06:00 Assessment and Plan (1) 39 weeks gestation of Current Visit: No Status: Acute Code(s): Z3A.39 - 39 WEEKS GESTATION OF SNOMED Code(s): 65792758 (2) Gestational diabetes mellitus (GDM) Current Visit: No Status: Acute Code(s): O24.419 - GESTATIONAL DIABETES MELLITUS IN , UNSP CONTROL SNOMED Code(s): 47710738 (3) Previous delivery affecting Current Visit: No Status: Acute Code(s): O34.219 - MATERNAL CARE FOR UNSP TYPE SCAR FROM PREVIOUS DEL SNOMED Code(s): 035586806 (4) Group B Streptococcus carrier, +RV culture, currently Current Visit: No Status: Acute Code(s): O99.820 - STREPTOCOCCUS B CARRIER STATE COMPLICATING SNOMED Code(s): 9914344048873 Plan: Proceed with repeat section. I have discussed the risks, benefits, and alternative therapies for the above- mentioned procedure and for both sedation/anesthesia as well as necessary blood products administration, if indicated, as they pertain to this patient. The patient has indicated her understanding and acceptance of the risks and procedures discussed.
[2020-08-07] MEDS ORDERED: LACTATED RINGERS 1,000 ML IV ONE (05:57)
[2020-08-07] MEDS ORDERED: LIDOCAINE 1% (10MG/ML) FOR IV START INTRADERMA PRN (05:57)
[2020-08-07] MEDS ORDERED: CITRIC ACID-SODIUM CITRATE 15 ML CUP PO ONE (05:57)
[2020-08-07 06:18] LABS: Basophils % (A) 0 %; Eosinophils # (A) 0.2 k/uL (0-0.7); Eosinophils % (A) 2 %; HCT 36.3 % (34.0-46.0); HGB 12.2 gm/dL (11.4-16.0); Lymphocytes # (A) 1.9 k/uL (1.0-4.8); Lymphocytes % (A) 16 %; MCH 27.9 pg (25.0-35.0); MCHC 33.7 g/dL (31.0-37.0); Mean Platelet Volume 7.5; Monocytes # (A) 0.6 k/uL (0-1.0); Monocytes % (A) 5 %; Neutrophils # (A) 9.2 k/uL (1.3-7.7); Neutrophils % (A) 77 %; Platelet Count 253 k/uL (150-450); RBC 4.37 m/uL (3.80-5.40); RDW 12.9 % (11.5-15.5); WBC 12.1 k/uL (3.8-10.6)
[2020-08-07 07:11] LABS: Glucose,Whole Blood 98 mg/dL (75-99)
[2020-08-07] MEDS ORDERED: ONDANSETRON 4 MG/2 ML VIAL ONE (07:56)
[2020-08-07] MEDS ORDERED: KETOROLAC 15 MG/ML 1 ML VIAL ONE (07:56)
[2020-08-07] MEDS ORDERED: OXYTOCIN 10 UNIT/ML 1 ML VIAL ONE (07:56)
[2020-08-07] MEDS ORDERED: PHENYLEPHRINE-0.9% NACL SYG 1,000 MCG/10 ML SYRINGE ONE (07:56)
[2020-08-07] MEDS ORDERED: SODIUM CHLORIDE 0.9% 100 ML BAG ONE (07:56)
[2020-08-07] MEDS ORDERED: ceFAZolin 1,000 MG VIAL ONE (07:56)
[2020-08-07] MEDS ORDERED: MORPHINE SULFATE (PF) 0.3 MG/0.3 ML SYR ONE (07:56)
[2020-08-07] MEDS ORDERED: diphenhydrAMINE 25 MG CAP PO PRN (08:43)
[2020-08-07] MEDS ORDERED: HYDROcodone/APAP 7.5-325MG 1 EACH TAB PO PRN (08:43)
[2020-08-07] MEDS ORDERED: OXYTOCIN 30 UNITS/500 ML NS 30 UNIT in SALINE 1 500ML.BAG IV SCH (08:43)
[2020-08-07] MEDS ORDERED: ZOLPIDEM 5 MG TAB PO PRN (08:43)
[2020-08-07] MEDS ORDERED: diphenhydrAMINE 50 MG/ML 1 ML VIAL IVP PRN ×2 (08:43)
[2020-08-07] MEDS ORDERED: LANOLIN CREAM 5 GM TUBE TOPICAL PRN (08:43)
[2020-08-07] MEDS ORDERED: diphenhydrAMINE 50 MG CAP PO PRN (08:43)
[2020-08-07] MEDS ORDERED: ONDANSETRON 4 MG/2 ML VIAL IVP PRN (08:43)
[2020-08-07] MEDS ORDERED: NALOXONE 0.4 MG/ML 1 ML VIAL IV PRN (08:43)
[2020-08-07] MEDS ORDERED: SIMETHICONE 80 MG CHEWABLE PO PRN (08:43)
[2020-08-07] MEDS ORDERED: METOCLOPRAMIDE 5 MG/ML 2 ML VIAL IVP PRN (08:43)
[2020-08-07] MEDS ORDERED: ACETAMINOPHEN TAB 325 MG TAB PO PRN (08:43)
--- NOTE | 2020-08-07 08:44 | P.OP ---
Date of Procedure: 08/07/20 Preoperative Diagnosis: 1. Intrauterine at 39-2/7 weeks. 2. Gestational diabetes. 3. History of previous section. Postoperative Diagnosis: Same Procedure(s) Performed: Repeat low transverse section Anesthesia: spinal (Duramorph) Surgeon: Aide Trinidad Oyster Shucker #1: Mariya Reeves Estimated Blood Loss (ml): 500 Pathology: other (Placenta) Condition: stable Disposition: floor Indications for Procedure: This is a 25-year-old female 2 para 1 at 39-2/7 weeks who presents for scheduled repeat section due to history of previous section and gestational diabetes diet controlled. I have discussed the risks, benefits, and alternative therapies for the above- mentioned procedure and for both sedation/anesthesia as well as necessary blood products administration, if indicated, as they pertain to this patient. The patient has indicated her understanding and acceptance of the risks and procedures discussed. Operative Findings: A viable female infant is noted in the vertex presentation with scores of 9 at 1 minute and 9 at 5 minutes and infant weight of 7 lbs. 2 oz. Nuchal cord 3 is noted. Normal uterus tubes and ovaries are noted. Description of Procedure: The patient is taken to the operating room where she is placed in the dorsal supine position with leftward tilt after spinal Duramorph anesthesia is given. She is prepped and draped in the normal sterile fashion. Skin was tested and found to be adequately anesthetized. A Pfannenstiel skin incision was made with a scalpel through the previous laparotomy scar. A second knife was used to carry the incision down to the underlying layer of fascia. The fascia was nicked in the midline with a scalpel and then extended laterally bilaterally with Espinoza scissors. The anterior lip of the fascia was grasped with 2 Janelle clamps and then dissected off the underlying rectus muscle in the midline with Espinoza scissors. The inferior aspect of the fascial incision was grasped with 2 Janelle clamps and dissected off the underlying rectus muscle and the midline with Espinoza scissors. Next the peritoneum layer was tented up with 2 hemostats and then entered sharply with the scalpel. The incision is extended superiorly and inferiorly with Metzenbaum scissors. Next a DeLee retractor is placed. The vesicouterine peritoneum is entered sharply with Metzenbaum scissors and exten ded laterally bilaterally with Metzenbaum scissors and then the bladder flap is pushed inferiorly. The lower uterine segment is incised in transverse fashion with the scalpel and then bluntly entered with a hemostat. Clear fluid is noted. The incision was then extended laterally bilaterally with 2 fingers. Next the infant's head is delivered through the incision. Nose and mouth are bulb suctioned. Nuchal cord 3 was reduced around the 's head. The remainder of the infant is easily delivered and placed on mother's abdomen. Cord is clamped and cut. is taken to warmer by nursing staff. Uterine fundus is gently massaged and placenta is delivered manually. Uterus is exteriorized and cleared of all clots and debris. Uterine incision is closed with 0 Vicryl suture in a running locked fashion. A second layer of 0 Vicryl suture is used in a running fashion for hemostasis. Once adequate hemostasis as assured, the vesicouterine peritoneum is reapproximated with 2-0 Vicryl suture in a running fashion. Posterior cul-de-sac is suctioned of all clots and debris. Uterus is returned to the abdomen. Incision is noted to be hemostatic. Peritoneal layer is closed with 0 Vicryl suture in a running fashion. Muscle layer is reapproximated with 0 Vicryl suture in interrupted fashion. Fascia layer is then closed with 0 PDS suture with 2 sutures meeting in the midline and the knots buried in either side and in the midline. The subcutaneous tissue was then closed with 2-0 Vicryl suture. Skin layer was then closed with jeanie. All sponge and needle counts are correct. The patient is taken to recovery room in stable condition.
[2020-08-07] MEDS: KETOROLAC 15 MG/ML 1 ML VIAL IVP PRN (21:31)
[2020-08-07] MEDS: SENNOSIDES-DOCUSATE SODIUM 1 EACH TAB PO SCH (22:22)
[2020-08-08] MEDS: KETOROLAC 15 MG/ML 1 ML VIAL IVP PRN ×2 (03:21→09:57)
--- NOTE | 2020-08-08 06:49 | P.PN ---
Progress Note - Text Progress Note Date: 08/08/20 Postoperative day 1 status post section under spinal anesthesia, and i ntrathecal morphine given for postoperative analgesia, patient doing well, there is no anesthesia related complications Patient had no headache, vital signs stable Assessment and plan = postop day 1 status post , doing well there is no anesthesia related complication
[2020-08-08 06:50] LABS: Basophils % (A) 0 %; Eosinophils # (A) 0.2 k/uL (0-0.7); Eosinophils % (A) 2 %; HCT 32.5 % (34.0-46.0); HGB 10.8 gm/dL (11.4-16.0); Lymphocytes # (A) 1.3 k/uL (1.0-4.8); Lymphocytes % (A) 13 %; MCHC 33.3 g/dL (31.0-37.0); MCV 84.1 fL (80.0-100.0); Mean Platelet Volume 7.5; Monocytes # (A) 0.6 k/uL (0-1.0); Monocytes % (A) 6 %; Neutrophils # (A) 7.6 k/uL (1.3-7.7); Neutrophils % (A) 78 %; Platelet Count 201 k/uL (150-450); RBC 3.87 m/uL (3.80-5.40); RDW 12.9 % (11.5-15.5); WBC 9.8 k/uL (3.8-10.6)
[2020-08-08] MEDS: SENNOSIDES-DOCUSATE SODIUM 1 EACH TAB PO SCH ×2 (08:28→19:34)
--- NOTE | 2020-08-08 08:38 | P.PNOBGPC ---
Subjective - Subjective Principal diagnosis: S/P repeat LTCS POD#1 Interval history: Pt. doing well. Bottle feeding. Some flatus, but no BM yet. Tolerating regular diet. Urinating. Minimal lochia. Patient reports: Reports appetite normal, Reports voiding normally, Reports pain well controlled, Reports ambulating normally [place]: doing well, bottle feeding Objective - Vital Signs Latest vital signs: Vital Signs Temp Pulse Pulse Resp BP Pulse Ox 08/08/20 04:00 98.4 F 82 16 95/59 99 08/08/20 00:00 97.8 F 93 16 109/59 99 08/07/20 20:00 98.4 F 64 16 110/70 98 08/07/20 15:31 98.3 F 75 17 120/70 08/07/20 10:44 97.2 F L 69 18 117/69 99 08/07/20 10:14 97.5 F L 84 18 107/53 99 08/07/20 09:44 97.0 F L 77 18 104/53 99 08/07/20 09:29 97.0 F L 81 18 113/52 99 08/07/20 09:14 96.6 F L 74 18 108/53 98 08/07/20 08:59 96.6 F L 68 18 120/55 99 08/07/20 08:44 97.2 F L 71 18 114/82 98 Intake and Output 08/07/20 08/08/20 08/08/20 22:59 06:59 14:59 Output Total 900 500 Balance -900 -500 Output: Urine 900 500 Other: # Voids 2 1 - Exam Lungs: bilateral: normal Extremities: Present: normal Abdomen: Present: normal appearance, soft. Absent: distention, tenderness Incision: Present: normal, dry, intact. Absent: erythematous Uterus: Present: normal, firm. Absent: tenderness - Labs Labs: Abnormal Lab Results - Last 24 Hours (Table) 08/08/20 Range/Units 06:25 Hgb 10.8 L (11.4-16.0) gm/dL Hct 32.5 L (34.0-46.0) % Assessment and Plan Assessment: S/P Repeat LTCS POD#1 Gestational diabetes, diet controlled (1) 39 weeks gestation of Current Visit: No Status: Acute Code(s): Z3A.39 - 39 WEEKS GESTATION OF SNOMED Code(s): 84056732 (2) Gestational diabetes mellitus (GDM) Current Visit: No Status: Acute Code(s): O24.419 - GESTATIONAL DIABETES MELLITUS IN , UNSP CONTROL SNOMED Code(s): 69698373 (3) Previous delivery affecting Current Visit: No Status: Acute Code(s): O34.219 - MATERNAL CARE FOR UNSP TYPE SCAR FROM PREVIOUS DEL SNOMED Code(s): 422229398 (4) Group B Streptococcus carrier, +RV culture, currently Current Visit: No Status: Acute Code(s): O99.820 - STREPTOCOCCUS B CARRIER STATE COMPLICATING SNOMED Code(s): 2515975635691 Plan: Continue post op care. Encouraged ambulation. Advance diet as tolerated. Switch to oral pain medication today.
[2020-08-08] MEDS: HYDROcodone/APAP 5-325MG 1 EACH TAB PO PRN ×2 (14:26→19:34)
[2020-08-08] MEDS: IBUPROFEN 600 MG TAB PO PRN ×2 (16:11→22:46)
[2020-08-08] MEDS: LACTATED RINGERS 1,000 ML IV SCH ×2 (17:21→17:22)
[2020-08-09] MEDS: HYDROcodone/APAP 5-325MG 1 EACH TAB PO PRN (06:04)
[2020-08-09 07:49] VITALS: BP 122/80; PULSE 92; RESP 15; TEMP 98
--- NOTE | 2020-08-09 09:04 | P.DS ---
Providers Date of admission: 08/07/20 05:46 Expected date of discharge: 08/09/20 Attending physician: Aide Trinidad Primary care physician: Stated None - Discharge Diagnosis(es) (1) 39 weeks gestation of Current Visit: No Status: Acute (2) Gestational diabetes mellitus (GDM) Current Visit: No Status: Acute (3) Previous delivery affecting Current Visit: No Status: Acute (4) Group B Streptococcus carrier, +RV culture, currently Current Visit: No Status: Acute Hospital Course: When he 5-year-old female 2 para 1 at 39-2/7 weeks who presented for scheduled repeat section. She underwent a repeat low transverse section under spinal Duramorph anesthesia on 08/07/2020 and delivered a viable female infant with scores of 9 at 1 minute and 9 at 5 minutes and weight of 7 lbs. 2 oz. Her postoperative course has been essentially uncomplicated. Lochia has been decreasing. She is passing flatus and bowel movement. Her pain is fairly well controlled with ibuprofen and [place]. She is bottle feeding. Vital signs are stable. Abdomen is soft with fundus firm and nontender. Incision is clean dry and intact with jeanie in place. Extremities show negative Homans. Impression is status post repeat low transverse section postoperative day #2. Plan is to discharge home today. Routine postoperative and instructions are given. She will be given a prescription for ibuprofen and [place]. She has been counseled regarding opioid use and has and a consent form. She is advised follow-up in the office in 1 week for a postoperative check and in 6 weeks for a check. She is advised to call the office for any further questions or concerns prior to her appointment time. Procedures: Repeat low transverse section on 08/07/2020 Patient Condition at Discharge: Stable Plan - Discharge Summary Discharge Rx Participant: Yes New Discharge Prescriptions: New Ibuprofen [Motrin] 600 mg PO Q6HR PRN #60 tab PRN Reason: Mild Pain Or Fever >= 100.5 HYDROcodone/APAP 5-325MG [[place] 5-325] 1 each PO Q4HR PRN #30 tab PRN Reason: Moderate Pain Discharge Medication List HYDROcodone/APAP 5-325MG [[place] 5-325] 1 each PO Q4HR PRN #30 tab 08/09/20 [Rx] Ibuprofen [Motrin] 600 mg PO Q6HR PRN #60 tab 08/09/20 [Rx] Follow up Appointment(s)/Referral(s): Aide Trinidad DO [Doctor of Osteopathic Medicine] - 1 Week Activity/Diet/Wound Care/Special Instructions: Instructions 1. Do not begin any exercise program for 3 weeks. 2. Do not resume sexual relations for 3 weeks or longer if uncomfortable. 3. You may take tub baths or showers at any time. 4. You may use tampons if desired after 3 weeks. 5. Keep the area of episiotomy (stitches) clean and dry. 6. If you are not nursing, wear a good fitting, supportive bra during the day and limit fluid intake for at least 1 week to prevent breast engorgement. 7. Call the office, [phone], within the next week to make appointment for your 6 week checkup if it has not already been made. 8. Report any of the following occurrences to the doctor promptly: a. Heavy, excessive bleeding b. Chills, fever c. Burning or frequency of urination d. Pain or redness and breasts if nursing e. Increasing pain or swelling in episiotomy (stitches). In addition to the above instructions, the following additional should be followed: 1. No heavy lifting or straining (exercising) until after 6 week checkup. 2. Keep abdominal incision clean and dry: You may wear a dressing if more comfortable. 3. Make office appointment for 10 days after going home or as instructed by her doctor. Discharge Disposition: HOME SELF-CARE
[2020-08-09] MEDS: SENNOSIDES-DOCUSATE SODIUM 1 EACH TAB PO SCH (09:10)
[2020-08-09] MEDS: IBUPROFEN 600 MG TAB PO PRN (11:01)
== END 2020-08-09 11:35 | disposition home or self-care (01) | DRG 788 ==
LOC: 4FBP 08-07 05:46
PROVIDERS: ADMIT Obstetrics & Gynecology; ATTEND Obstetrics & Gynecology
PROC: 10D00Z1 Extraction of Products of Conception, Low, Open Approach (ICD-10-PCS; principal; 2020-08-07 08:00)
DX: O34.211 Maternal care for low transverse scar from previous cesarean delivery (principal); O99.824 Streptococcus B carrier state complicating childbirth; O24.420 Gestational diabetes mellitus in childbirth, diet controlled; F90.9 Attention-deficit hyperactivity disorder, unspecified type; O99.344 Other mental disorders complicating childbirth; O69.81X0 Labor and delivery complicated by cord around neck, without compression, not applicable or unspecified; Z3A.39 39 weeks gestation of pregnancy; Z37.0 Single live birth; Z87.891 Personal history of nicotine dependence; Z90.49 Acquired absence of other specified parts of digestive tract
CPT/HCPCS: 83036; 85025; 86850; 86900; 86901; 88307